=== PATIENT | male | born 1940 | race Caucasian/White ===

== ENCOUNTER 2016-09-18 | Outpatient (CLI) | payer OTHER | END 2016-09-18 01:34 | disposition critical access hospital (66) | CPT/HCPCS: A0425; A0427 ==

== ENCOUNTER 2016-09-18 01:51 | Inpatient (IN) | payer MEDICARE, MEDICAID ==
[2016-09-18] MEDS ORDERED: SODIUM CHLORIDE 0.9% 2,000 ML IV ONE (02:12)
[2016-09-18] MEDS ORDERED: INSULIN REGULAR HUMAN 100 UNIT/1 ML 10 ML MDV IVP STA (02:13)
[2016-09-18] MEDS ORDERED: INSULIN NPH HUMAN 100 UNIT/1 ML 10 ML MDV SUBQ ONE (02:26)
[2016-09-18] MEDS ORDERED: ONDANSETRON 4 MG/2 ML VIAL IVP PRN (03:23)
[2016-09-18] MEDS ORDERED: ONDANSETRON ODT 4 MG TABLET TL PRN (03:23)
[2016-09-18] MEDS ORDERED: HYDROmorphone 1 MG/ML SYRINGE IVP PRN (03:23)
[2016-09-18] MEDS ORDERED: SODIUM CHLORIDE FLUSH 0.9% 10 ML SYRINGE IVP PRN (03:23)
[2016-09-18] MEDS ORDERED: ACETAMINOPHEN 325 MG TABLET PO PRN (03:23)
[2016-09-18] MEDS ORDERED: ZINC OXIDE 20% OINT 28.35 GM TUBE TOP ONE (03:27)
[2016-09-18] MEDS ORDERED: ACETAMINOPHEN 650 MG SUPP PR STA (03:28)
[2016-09-18] MEDS ORDERED: ACETAMINOPHEN 650 MG SUPP PR ONE (03:31)
[2016-09-18] MEDS ORDERED: SODIUM CHLORIDE 0.9% 1,000 ML IV ONE ×5 (03:37→17:00)
[2016-09-18] MEDS: SODIUM CHLORIDE 0.9% 1,000 ML IV SCH ×3 (05:10→20:01)
[2016-09-18] MEDS: INSULIN REGULAR HUMAN 100 UNIT in SODIUM CHLORIDE 0.9% 100ML 99 ML IV SCH ×2 (05:33→10:26)
[2016-09-18] MEDS: IBUPROFEN 600 MG TABLET PO SCH ×3 (06:50→17:14)
[2016-09-18] MEDS: SODIUM CHLORIDE FLUSH 0.9% 10 ML SYRINGE IVP SCH ×3 (06:55→23:00)
[2016-09-18] MEDS: PANTOPRAZOLE 40 MG VIAL IVP SCH (06:55)
[2016-09-18] MEDS ORDERED: VANCOMYCIN PER PHARMACY 1 GM in SODIUM CHLORIDE 0.9% 250 ML IV SCH (08:00)
[2016-09-18] MEDS ORDERED: PIPERACILLIN/TAZOBACTAM 4.5 GM in SODIUM CHLORIDE 0.9% MINIBAG 100 ML IV ONE (08:00)
[2016-09-18] MEDS: SACCHAROMYCES BOULARDII 250 MG CAPSULE PO SCH ×2 (08:47→16:52)
[2016-09-18] MEDS: VANCOMYCIN INJ 1 GM in SODIUM CHLORIDE 0.9% 250 ML IV SCH (08:54)
[2016-09-18] MEDS ORDERED: DEXTROSE 50% ABBOJECT 25 GM/50 ML SYRINGE IVP PRN (09:18)
[2016-09-18] MEDS ORDERED: GLUCAGON 1 MG/ML VIAL SUBQ PRN (09:18)
[2016-09-18] MEDS ORDERED: DEXTROSE 5% 1,000 ML IV PRN (09:18)
[2016-09-18] MEDS ORDERED: DEXTROSE GEL 37.5 GM TUBE PO PRN (09:18)
[2016-09-18] MEDS: ENOXAPARIN 30 MG/0.3 ML SYRINGE SUBQ SCH (09:25)
[2016-09-18] MEDS: INSULIN GLARGINE 300 UNIT/3 ML PEN SUBQ SCH (09:29)
[2016-09-18] MEDS ORDERED: POTASSIUM PHOSPHATE 15 MMOL in SODIUM CHLORIDE 0.9% 250 ML IV ONE (10:00)
[2016-09-18] MEDS: PIPERACILLIN/TAZOBACTAM 4.5 GM in SODIUM CHLORIDE 0.9% MINIBAG 100 ML IV SCH ×2 (10:40→19:04)
[2016-09-18] MEDS: INSULIN REGULAR HUMAN 100 UNIT/1 ML 10 ML MDV SUBQ SCH ×2 (13:32→17:59)
[2016-09-18] MEDS: ACETAMINOPHEN 650 MG SUPP PR PRN (16:15)
[2016-09-18] MEDS: ZINC OXIDE 20% OINT 28.35 GM TUBE TOP SCH ×2 (16:50→20:00)
[2016-09-18] MEDS ORDERED: CALCIUM GLUCONATE 1,000 MG in SODIUM CHLORIDE 0.9% 50 ML IV ONE (17:00)
[2016-09-19] MEDS: INSULIN REGULAR HUMAN 100 UNIT/1 ML 10 ML MDV SUBQ SCH ×4 (00:13→18:01)
[2016-09-19] MEDS: ZINC OXIDE 20% OINT 28.35 GM TUBE TOP SCH ×2 (00:27→16:28)
[2016-09-19] MEDS: SODIUM CHLORIDE 0.9% 1,000 ML IV SCH ×2 (00:28→06:13)
[2016-09-19] MEDS ORDERED: DEXTROSE 5% 250 ML IV ONE (02:11)
[2016-09-19] MEDS: PIPERACILLIN/TAZOBACTAM 4.5 GM in SODIUM CHLORIDE 0.9% MINIBAG 100 ML IV SCH ×2 (02:51→12:01)
[2016-09-19] MEDS: PANTOPRAZOLE 40 MG VIAL IVP SCH (06:22)
[2016-09-19] MEDS ORDERED: CALCIUM GLUCONATE 1,000 MG in SODIUM CHLORIDE 0.9% 50 ML IV ONE (07:30)
[2016-09-19] MEDS: IBUPROFEN 600 MG TABLET PO SCH ×4 (07:34→16:28)
[2016-09-19] MEDS: SODIUM CHLORIDE FLUSH 0.9% 10 ML SYRINGE IVP SCH ×2 (07:36→12:20)
[2016-09-19] MEDS ORDERED: SODIUM CHLORIDE 0.45% 1,000 ML IV SCH (08:00)
[2016-09-19] MEDS: SACCHAROMYCES BOULARDII 250 MG CAPSULE PO SCH ×2 (08:06→16:28)
[2016-09-19] MEDS: VANCOMYCIN INJ 1 GM in SODIUM CHLORIDE 0.9% 250 ML IV SCH (08:49)
[2016-09-19] MEDS: ENOXAPARIN 30 MG/0.3 ML SYRINGE SUBQ SCH (08:57)
[2016-09-19] MEDS: INSULIN GLARGINE 300 UNIT/3 ML PEN SUBQ SCH (08:59)
[2016-09-19] MEDS ORDERED: PROPOFOL 200 MG/20 ML VIAL IVP ONE (10:00)
[2016-09-19] MEDS ORDERED: ESMOLOL 100 MG/10 ML VIAL IVP ONE (10:00)
[2016-09-19] MEDS ORDERED: LIDOCAINE-MPF 2% 5 ML VIAL IM ONE (10:00)
[2016-09-19] MEDS ORDERED: fentaNYL 250 MCG/5 ML VIAL IVP ONE (10:00)
[2016-09-19] MEDS ORDERED: ePHEDrine 50 MG/ML AMP IVP ONE (10:00)
[2016-09-19] MEDS ORDERED: ACETAMINOPHEN 325 MG TABLET PO PRN (10:33)
[2016-09-19] MEDS ORDERED: PROCHLORPERAZINE 10 MG/2 ML VIAL IVP PRN (10:33)
[2016-09-19] MEDS ORDERED: SODIUM CHLORIDE FLUSH 0.9% 10 ML SYRINGE IVP PRN (10:33)
[2016-09-19] MEDS ORDERED: ONDANSETRON 4 MG/2 ML VIAL IVP PRN (10:33)
[2016-09-19] MEDS ORDERED: ACETAMINOPHEN 1,000 MG/100 ML 100 ML IV PRN (10:33)
[2016-09-19] MEDS ORDERED: SODIUM CHLORIDE 0.9% 1,000 ML IV SCH (11:00)
[2016-09-19] MEDS ORDERED: INSULIN REGULAR HUMAN 100 UNIT/1 ML 10 ML MDV SUBQ SCH (12:00)
[2016-09-19] MEDS ORDERED: SODIUM CHLORIDE FLUSH 0.9% 10 ML SYRINGE IVP SCH (14:00)
[2016-09-19] MEDS: SODIUM CHLORIDE 0.45% 1,000 ML IV SCH ×2 (16:27→18:50)
[2016-09-19] MEDS: ACETAMINOPHEN 650 MG SUPP PR PRN (16:55)
[2016-09-20] MEDS ORDERED: VANCOMYCIN INJ 1 GM in SODIUM CHLORIDE 0.9% 250 ML IV SCH (03:00)
[2016-09-20] MEDS ORDERED: LEVOTHYROXINE 25 MCG TABLET PO SCH (07:00)
== END 2016-09-19 19:10 | disposition short-term general hospital (02) | DRG 981 ==
PROC: 02H633Z Insertion of Infusion Device into Right Atrium, Percutaneous Approach (ICD-10-PCS; 2016-09-18)
PROC: 0R9P3ZX Drainage of Left Wrist Joint, Percutaneous Approach, Diagnostic (ICD-10-PCS; 2016-09-18)
PROC: 0RJ Upper Joints, Inspection (ICD-10-PCS; principal; 2016-09-19 09:15)
PROC: 0J9H00Z Drainage of Left Lower Arm Subcutaneous Tissue and Fascia with Drainage Device, Open Approach (ICD-10-PCS; principal; 2016-09-19 09:15)
DX: E13.10 Other specified diabetes mellitus with ketoacidosis without coma (principal); A41.9 Sepsis, unspecified organism; R65.21 Severe sepsis with septic shock; N28.9 Disorder of kidney and ureter, unspecified; E86.0 Dehydration; M25.432 Effusion, left wrist; M79.89 Other specified soft tissue disorders; L98.8 Other specified disorders of the skin and subcutaneous tissue; I10 Essential (primary) hypertension; E78.00 Pure hypercholesterolemia, unspecified; E03.9 Hypothyroidism, unspecified; J18.9 Pneumonia, unspecified organism; G93.41 Metabolic encephalopathy; N39.0 Urinary tract infection, site not specified; L03.114 Cellulitis of left upper limb; L02.512 Cutaneous abscess of left hand; N17.9 Acute kidney failure, unspecified; E87.0 Hyperosmolality and hypernatremia; E87.1 Hypo-osmolality and hyponatremia; E87.2 Acidosis; M00.032 Staphylococcal arthritis, left wrist; E87.6 Hypokalemia; B95.62 Methicillin resistant Staphylococcus aureus infection as the cause of diseases classified elsewhere; W22.8XXA Striking against or struck by other objects, initial encounter; I05.9 Rheumatic mitral valve disease, unspecified; N40.0 Benign prostatic hyperplasia without lower urinary tract symptoms; E11.65 Type 2 diabetes mellitus with hyperglycemia; E11.40 Type 2 diabetes mellitus with diabetic neuropathy, unspecified; E11.22 Type 2 diabetes mellitus with diabetic chronic kidney disease; I12.9 Hypertensive chronic kidney disease with stage 1 through stage 4 chronic kidney disease, or unspecified chronic kidney disease; N18.9 Chronic kidney disease, unspecified; Z66 Do not resuscitate; Z79.82 Long term (current) use of aspirin; Z79.84 Long term (current) use of oral hypoglycemic drugs

== ENCOUNTER 2016-09-19 | Outpatient (CLI) | payer MEDICARE, OTHER | END 2016-09-19 19:07 | disposition short-term general hospital (02) | DX: I38 Endocarditis, valve unspecified (principal) | CPT/HCPCS: A0425; A0426 ==